=== PATIENT | male | born 1960 | race Caucasian/White ===

== ENCOUNTER 2017-11-07 07:26 | Emergency (ER) | payer MEDICAID ==
[~2017-11-07] VITALS: Ht 190.5 cm; Wt 72.2 kg
[2017-11-07 07:28] VITALS: BP 130/87
[2017-11-07] MEDS ORDERED: HYDROcodone/APAP 5/325 TABLET ONE (08:11)
[2017-11-07] MEDS ORDERED: HYDROcodone/APAP 5/325 TABLET PO PRN (08:30)
== END 2017-11-07 09:57 | disposition home or self-care (01) ==
LOC: ED 09:51
DX: G89.29 Other chronic pain (principal); M25.531 Pain in right wrist; F17.200 Nicotine dependence, unspecified, uncomplicated
CPT/HCPCS: 29260; 99284

== ENCOUNTER 2019-08-31 11:09 | Emergency (ER) | payer MEDICAID ==
[~2019-08-31] VITALS: Ht 190.5 cm; Wt 75.1 kg
[2019-08-31 11:25] VITALS: BP 133/81
[2019-08-31] MEDS ORDERED: KETOROLAC 30 MG/1 ML IM ONE (12:00)
[2019-08-31 12:39] LABS: BASOPHILS # (AUTO) 0.11 x10^3/uL (0-0.1); BASOPHILS % (AUTO) 1 % (0-1); EOSINOPHILS # (AUTO) 0.28 x10^3/uL (0-0.4); EOSINOPHILS % (AUTO) 2 % (1-7); HCT (SEDRATE) 43.7 % (39.2-51.8); LYMPHOCYTES # (AUTO) 2.92 x10^3/uL (1-3.4); LYMPHOCYTES % (AUTO) 22 % (22-44); MD NO; MEAN CORPUSCULAR HEMOGLOBIN 29.8 pg (27.5-34.5); MEAN CORPUSCULAR HGB CONC 32.8 g/dL (33.2-36.2); MEAN CORPUSCULAR VOLUME 90.9 fL (81-97); MEAN PLATELET VOLUME 7.2 fL (7.4-10.4); MONOCYTES # (AUTO) 0.82 x10^3/uL (0.2-0.8); MONOCYTES % (AUTO) 6 % (2-9); NEUTROPHILS # (AUTO) 9.16 x10^3/uL (1.8-6.8); NEUTROPHILS % (AUTO) 69 % (42-75); PLATELET COUNT 339 x10^3/uL (130-400); RED BLOOD COUNT 4.85 x10^6/uL (4.38-5.82); RED CELL DISTRIBUTION WIDTH 13.8 % (9.4-14.8)
[2019-08-31 12:46] LABS: ALBUMIN 3.3 g/dL (3.4-5.0); ANION GAP 3 mmol/L (5-15); CALCIUM 9.7 mg/dL (8.5-10.1); CHLORIDE 108 mmol/L (98-107)
[2019-08-31] MEDS ORDERED: KETOROLAC 30 MG/1 ML ONE (12:47)
[2019-08-31 12:56] LABS: CREATININE 0.85 mg/dL (0.7-1.3)
[2019-08-31] MEDS ORDERED: CEPHALEXIN 500 MG CAPSULE PO ONE (13:30)
[2019-08-31] MEDS ORDERED: SULFAMETH./TRIMETHOPRIM DS 800MG/160MG TABLET PO ONE (13:30)
[2019-08-31] MEDS ORDERED: CEPHALEXIN 500 MG CAPSULE ONE (13:41)
[2019-08-31] MEDS ORDERED: SULFAMETH./TRIMETHOPRIM DS 800MG/160MG TABLET ONE (13:41)
== END 2019-08-31 14:54 | disposition home or self-care (01) ==
LOC: ED 13:24
DX: L03.113 Cellulitis of right upper limb (principal); M19.90 Unspecified osteoarthritis, unspecified site; Z90.49 Acquired absence of other specified parts of digestive tract
CPT/HCPCS: 36415; 73080; 80048; 82040; 83605; 85025; 85651; 86140; 96372; 99284; J1885

== ENCOUNTER 2019-11-02 08:28 | Outpatient (CLI) | payer MEDICAID | END 2019-11-02 23:59 | disposition home or self-care (01) | LOC: WOUND 08:28 | PROVIDERS: ATTEND Internal Medicine | DX: S51.001A Unspecified open wound of right elbow, initial encounter (principal); I10 Essential (primary) hypertension; G89.4 Chronic pain syndrome; E78.5 Hyperlipidemia, unspecified; M19.90 Unspecified osteoarthritis, unspecified site; F19.10 Other psychoactive substance abuse, uncomplicated; F17.290 Nicotine dependence, other tobacco product, uncomplicated; F41.9 Anxiety disorder, unspecified; F32.9 Major depressive disorder, single episode, unspecified; Z90.49 Acquired absence of other specified parts of digestive tract; Y08.89XA Assault by other specified means, initial encounter; Y93.89 Activity, other specified; Y92.89 Other specified places as the place of occurrence of the external cause; Y99.8 Other external cause status | CPT/HCPCS: 97597; 99214 ==

== ENCOUNTER → 2019-11-09 | Outpatient (CLI) | payer MEDICAID | END | disposition home or self-care (01) | LOC: WOUND 12:31 | PROVIDERS: ATTEND Internal Medicine | DX: S51.001D Unspecified open wound of right elbow, subsequent encounter (principal); I10 Essential (primary) hypertension; F41.9 Anxiety disorder, unspecified; F32.9 Major depressive disorder, single episode, unspecified; E78.5 Hyperlipidemia, unspecified; G89.4 Chronic pain syndrome; F19.10 Other psychoactive substance abuse, uncomplicated; F15.10 Other stimulant abuse, uncomplicated; F14.10 Cocaine abuse, uncomplicated; M19.90 Unspecified osteoarthritis, unspecified site; Z90.49 Acquired absence of other specified parts of digestive tract; F17.200 Nicotine dependence, unspecified, uncomplicated; X58.XXXD Exposure to other specified factors, subsequent encounter | CPT/HCPCS: 97597 ==

== ENCOUNTER → 2019-11-16 | Outpatient (CLI) | payer MEDICAID | END | disposition home or self-care (01) | LOC: WOUND 12:35 | PROVIDERS: ATTEND Internal Medicine | DX: S51.001D Unspecified open wound of right elbow, subsequent encounter (principal); I10 Essential (primary) hypertension; F41.9 Anxiety disorder, unspecified; F32.9 Major depressive disorder, single episode, unspecified; E78.5 Hyperlipidemia, unspecified; G89.4 Chronic pain syndrome; F19.10 Other psychoactive substance abuse, uncomplicated; F15.10 Other stimulant abuse, uncomplicated; F14.10 Cocaine abuse, uncomplicated; M19.90 Unspecified osteoarthritis, unspecified site; Z90.49 Acquired absence of other specified parts of digestive tract; F17.200 Nicotine dependence, unspecified, uncomplicated; X58.XXXD Exposure to other specified factors, subsequent encounter | CPT/HCPCS: 97597 ==

== ENCOUNTER → 2019-12-07 | Outpatient (CLI) | payer MEDICAID ==
[~2019-12-07] MED LIST: ATOR10TA9 PO; CYCL-259 PO; GABA-827 PO; GADOTERATE 10 MMOL/20 ML SYR ONE; LISI5TAB7 PO; MELO15TA24 PO; MORP-29 PO; OXYC10TA6 PO
== END | disposition home or self-care (01) ==
LOC: RAD 08:57
PROVIDERS: ATTEND Internal Medicine
DX: S51.001D Unspecified open wound of right elbow, subsequent encounter (principal); R60.9 Edema, unspecified; X58.XXXD Exposure to other specified factors, subsequent encounter
CPT/HCPCS: 73223; A9575

== ENCOUNTER → 2019-12-07 | Outpatient (CLI) | payer MEDICAID ==
[~2019-12-07] MED LIST changes: -GADOTERATE 10 MMOL/20 ML SYR ONE
== END | disposition home or self-care (01) ==
LOC: WOUND 07:32
PROVIDERS: ATTEND Internal Medicine
DX: S51.001D Unspecified open wound of right elbow, subsequent encounter (principal); I10 Essential (primary) hypertension; F41.9 Anxiety disorder, unspecified; F32.9 Major depressive disorder, single episode, unspecified; E78.5 Hyperlipidemia, unspecified; G89.4 Chronic pain syndrome; F19.10 Other psychoactive substance abuse, uncomplicated; F15.10 Other stimulant abuse, uncomplicated; F14.10 Cocaine abuse, uncomplicated; M19.90 Unspecified osteoarthritis, unspecified site; F17.200 Nicotine dependence, unspecified, uncomplicated; Z90.49 Acquired absence of other specified parts of digestive tract; X58.XXXD Exposure to other specified factors, subsequent encounter
CPT/HCPCS: 97597

== ENCOUNTER 2019-12-08 13:33 | Inpatient (IN) | payer MEDICAID ==
[~2019-12-08] VITALS: Ht 190.5 cm; Wt 67.3 kg
--- NOTE | 2019-12-08 14:50 | NUR ---
PT TOLD TO COME HERE BY PCP FOR SUSPICION OF "BONE INFECTION" PT TO BP, CONT PULSE OX LABS BEING DRAWN
[2019-12-08 15:11] LABS: ALBUMIN 4.4 g/dL (3.4-5.0); ANION GAP 7 mmol/L (5-15); CALCIUM 10.1 mg/dL (8.5-10.1); CHLORIDE 103 mmol/L (98-107)
[2019-12-08 15:17] LABS: BASOPHILS % (AUTO) 1 % (0-1); EOSINOPHILS % (AUTO) 2 % (1-7); LYMPHOCYTES % (AUTO) 20 % (22-44); MEAN CORPUSCULAR HEMOGLOBIN 29.5 pg (27.5-34.5); MEAN CORPUSCULAR HGB CONC 32.8 g/dL (33.2-36.2); MEAN PLATELET VOLUME 7.6 fL (7.4-10.4); MONOCYTES % (AUTO) 8 % (2-9); NEUTROPHILS % (AUTO) 70 % (42-75); PLATELET COUNT 376 x10^3/uL (130-400); RED BLOOD COUNT 5.77 x10^6/uL (4.38-5.82); RED CELL DISTRIBUTION WIDTH 14.4 % (9.4-14.8)
[2019-12-08 15:27] LABS: MD NO
[2019-12-08] MEDS ORDERED: SODIUM CHLORIDE 0.9% 1,000 ML IV ONE (15:30)
[2019-12-08] MEDS ORDERED: SODIUM CHLORIDE FLUSH 10ML SYR IVF ONE (15:30)
[2019-12-08] MEDS ORDERED: VANCOMYCIN PER PHARMACY MC PRN ×2 (16:00→19:00)
[2019-12-08] MEDS ORDERED: PIPERACILLIN/TAZO/PMX 3.375GM 50 ML IV ONE (16:00)
[2019-12-08] MEDS ORDERED: VANCOMYCIN 1,500 MG in SODIUM CHLORIDE 0.9% 250 ML IV ONE (16:00)
--- NOTE | 2019-12-08 16:14 | NUR ---
ABX BEGAN POST BC DRAWN, VSS, NO NEEDS AT THIS TIME
[2019-12-08] MEDS ORDERED: PIPERACILLIN/TAZO/PMX 3.375GM 50 ML ONE (16:17)
[2019-12-08 16:37] LABS: HCT (SEDRATE) 51.9 % (39.2-51.8)
--- NOTE | 2019-12-08 17:30 | NUR ---
REPORT GIVEN TO RECIEVING RN, AWAITING TRANSPORT
[2019-12-08] MEDS ORDERED: MELO15TA24 PO (17:46)
[2019-12-08] MEDS ORDERED: CYCL-259 PO (17:46)
[2019-12-08] MEDS ORDERED: OXYC10TA6 PO (17:46)
[2019-12-08] MEDS ORDERED: LISI5TAB7 PO (17:46)
[2019-12-08] MEDS ORDERED: ATOR10TA9 PO (17:46)
[2019-12-08] MEDS ORDERED: MORP-29 PO (17:46)
[2019-12-08] MEDS ORDERED: GABA-827 PO (17:46)
[2019-12-08 18:44] VITALS: BP 128/80
[2019-12-08] MEDS: PIPERACILLIN/TAZO/PMX 3.375GM 50 ML IV SCH (19:00)
[2019-12-08] MEDS ORDERED: morphine SULFATE 10 MG/ML, 1ML IVPush PRN (19:30)
[2019-12-08] MEDS ORDERED: POLYETHYLENE GLYCOL 17 GM PACKET PO PRN (19:30)
[2019-12-08] MEDS ORDERED: PHARMACOKINETIC CONSULTATION MC ONE (19:30)
[2019-12-08] MEDS ORDERED: DOCUSATE 100 MG CAPSULE PO PRN (19:30)
[2019-12-08] MEDS ORDERED: HYDROcodone/APAP 5/325 TABLET PO PRN (19:30)
[2019-12-08] MEDS ORDERED: BISACODYL 10 MG SUPP PR PRN (19:30)
[2019-12-08] MEDS ORDERED: PHARMACOKINETIC MONITORING MC PRN (19:30)
[2019-12-08] MEDS ORDERED: ACETAMINOPHEN 325 MG TABLET PO PRN (19:30)
[2019-12-08 20:05] LABS: INTERNATIONAL NORMALIZED RATIO 0.97 (0.93-1.1)
[2019-12-08] MEDS: GABAPENTIN 400 MG CAPSULE PO SCH (21:00)
[2019-12-08] MEDS: MELOXICAM 15 MG TABLET PO SCH (21:00)
[2019-12-08] MEDS: ATORVASTATIN 10 MG TABLET PO SCH (21:35)
[2019-12-09 00:28] VITALS: BP 121/85
[2019-12-09] MEDS: PIPERACILLIN/TAZO/PMX 3.375GM 50 ML IV SCH ×3 (04:09→20:46)
[2019-12-09] MEDS: OXYcodone IR 5MG TABLET PO SCH ×3 (04:18→21:04)
[2019-12-09 05:20] LABS: BASOPHILS % (AUTO) 1 % (0-1); EOSINOPHILS % (AUTO) 4 % (1-7); LYMPHOCYTES % (AUTO) 31 % (22-44); MEAN CORPUSCULAR HEMOGLOBIN 29.5 pg (27.5-34.5); MEAN CORPUSCULAR HGB CONC 33.2 g/dL (33.2-36.2); MEAN PLATELET VOLUME 7.4 fL (7.4-10.4); MONOCYTES % (AUTO) 10 % (2-9); NEUTROPHILS % (AUTO) 55 % (42-75); PLATELET COUNT 313 x10^3/uL (130-400); RED BLOOD COUNT 5.22 x10^6/uL (4.38-5.82); RED CELL DISTRIBUTION WIDTH 14.1 % (9.4-14.8)
[2019-12-09 05:28] LABS: ALBUMIN 3.5 g/dL (3.4-5.0); ANION GAP 4 mmol/L (5-15); CALCIUM 9.9 mg/dL (8.5-10.1); CHLORIDE 110 mmol/L (98-107)
[2019-12-09 05:34] LABS: MD NO
[2019-12-09 05:39] LABS: ALANINE AMINOTRANSFERASE 26 U/L (12-78); ALKALINE PHOSPHATASE 86 U/L (45-117); BILIRUBIN,TOTAL 0.7 mg/dL (0.2-1.0); TOTAL PROTEIN 7.6 g/dL (6.4-8.2)
[2019-12-09] MEDS: VANCOMYCIN 1,300 MG in SODIUM CHLORIDE 0.9% 250 ML IV SCH ×2 (06:31→17:29)
[2019-12-09 07:35] VITALS: BP 119/74
[2019-12-09] MEDS ORDERED: GABAPENTIN 400 MG CAPSULE PO SCH (09:00)
[2019-12-09] MEDS ORDERED: MELOXICAM 15 MG TABLET PO SCH (09:00)
[2019-12-09] MEDS: LISINOPRIL 5 MG TABLET PO SCH (09:03)
[2019-12-09] MEDS ORDERED: BACITRACIN 50,000 UNIT ONE (12:49)
[2019-12-09 13:06] VITALS: BP 125/85
[2019-12-09] MEDS ORDERED: CHLORHEXIDINE 15 ML UDC MM ONE (14:30)
[2019-12-09] MEDS ORDERED: CHLORHEXIDINE 15 ML UDC ONE (14:31)
[2019-12-09] MEDS ORDERED: FENTANYL PF 250 MCG/5ML ONE (15:35)
[2019-12-09] MEDS ORDERED: DEXAMETHASONE 4 MG/ML, 1ML ONE (16:01)
[2019-12-09] MEDS ORDERED: ONDANSETRON 2MG/ML, 2ML ONE (16:01)
[2019-12-09] MEDS ORDERED: CEFAZOLIN 1,000 MG ONE (16:01)
[2019-12-09] MEDS ORDERED: PROPOFOL 10 MG/ML, 20ML ONE (16:01)
[2019-12-09] MEDS: FENTANYL PF 100 MCG/2ML IV PRN ×2 (16:25→16:31)
[2019-12-09] MEDS ORDERED: OXYcodone 5 MG/5 ML ORAL.SOL UDC ONE (16:26)
[2019-12-09] MEDS ORDERED: FENTANYL PF 100 MCG/2ML ONE (16:28)
[2019-12-09] MEDS ORDERED: OXYcodone 5 MG/5 ML ORAL.SOL UDC PO PRN (16:30)
[2019-12-09] MEDS ORDERED: hydrALAzine 20 MG/ML, 1ML IV PRN (16:30)
[2019-12-09] MEDS ORDERED: ONDANSETRON 2MG/ML, 2ML IVPush PRN (16:30)
[2019-12-09] MEDS ORDERED: PROMETHAZINE 25 MG/ML, 1ML IVPush PRN (16:30)
[2019-12-09] MEDS ORDERED: HALOPERIDOL 5 MG/ML IV PRN (16:30)
[2019-12-09] MEDS ORDERED: MEPERIDINE/PF 25MG/0.5ML IVPush PRN (16:30)
[2019-12-09] MEDS ORDERED: LABETALOL 5MG/ML, 20ML IV PRN (16:30)
[2019-12-09] MEDS ORDERED: DIPHENHYDRAMINE 50 MG/ML, 1ML IVPush PRN (16:30)
[2019-12-09] MEDS ORDERED: HYDROmorphone 1 MG/ML, 1ML INJ IVPush PRN (16:30)
[2019-12-09 17:00] VITALS: BP 117/78
[2019-12-09 20:29] VITALS: BP 130/83
[2019-12-09] MEDS: ATORVASTATIN 10 MG TABLET PO SCH (22:22)
[2019-12-09] MEDS: MELOXICAM 15 MG TABLET PO SCH (22:22)
[2019-12-09] MEDS: GABAPENTIN 400 MG CAPSULE PO SCH (22:22)
[2019-12-09] MEDS: CYCLOBENZAPRINE 10 MG TABLET PO PRN (22:28)
[2019-12-10 00:41] VITALS: BP 101/67
[2019-12-10] MEDS: PIPERACILLIN/TAZO/PMX 3.375GM 50 ML IV SCH ×3 (03:21→18:44)
[2019-12-10] MEDS: OXYcodone IR 5MG TABLET PO SCH ×5 (03:26→20:47)
[2019-12-10 04:32] VITALS: BP 119/76
[2019-12-10] MEDS: VANCOMYCIN 1,300 MG in SODIUM CHLORIDE 0.9% 250 ML IV SCH (05:04)
[2019-12-10 05:55] LABS: BASOPHILS % (AUTO) 1 % (0-1); EOSINOPHILS % (AUTO) 0 % (1-7); LYMPHOCYTES % (AUTO) 16 % (22-44); MEAN CORPUSCULAR HEMOGLOBIN 29.4 pg (27.5-34.5); MEAN CORPUSCULAR HGB CONC 32.8 g/dL (33.2-36.2); MEAN PLATELET VOLUME 7.5 fL (7.4-10.4); MONOCYTES % (AUTO) 8 % (2-9); NEUTROPHILS % (AUTO) 76 % (42-75); PLATELET COUNT 298 x10^3/uL (130-400); RED BLOOD COUNT 5.14 x10^6/uL (4.38-5.82); RED CELL DISTRIBUTION WIDTH 13.9 % (9.4-14.8)
[2019-12-10 05:57] LABS: ANION GAP 6 mmol/L (5-15); CALCIUM 9.6 mg/dL (8.5-10.1); CHLORIDE 109 mmol/L (98-107)
[2019-12-10 06:00] LABS: CREATININE 0.93 mg/dL (0.7-1.3); VANCOMYCIN,TROUGH 12.4 mcg/mL (5.0-10.0)
[2019-12-10 06:11] LABS: MD NO
[2019-12-10 07:56] VITALS: BP 122/72
[2019-12-10] MEDS: LISINOPRIL 5 MG TABLET PO SCH (08:04)
[2019-12-10] MEDS: VANCOMYCIN 1,500 MG in SODIUM CHLORIDE 0.9% 250 ML IV SCH (16:57)
[2019-12-10 20:38] VITALS: BP 109/72
[2019-12-10] MEDS: CYCLOBENZAPRINE 10 MG TABLET PO PRN (22:13)
[2019-12-10] MEDS: ATORVASTATIN 10 MG TABLET PO SCH (22:13)
[2019-12-10] MEDS: GABAPENTIN 400 MG CAPSULE PO SCH (22:13)
[2019-12-10] MEDS: MELOXICAM 15 MG TABLET PO SCH (22:13)
[2019-12-11] MEDS: PIPERACILLIN/TAZO/PMX 3.375GM 50 ML IV SCH ×3 (03:06→18:34)
[2019-12-11 03:08] VITALS: BP 111/67
[2019-12-11] MEDS: VANCOMYCIN 1,500 MG in SODIUM CHLORIDE 0.9% 250 ML IV SCH ×2 (05:51→16:42)
[2019-12-11] MEDS: OXYcodone IR 5MG TABLET PO SCH ×3 (05:51→16:42)
[2019-12-11 05:56] LABS: BASOPHILS % (AUTO) 1 % (0-1); EOSINOPHILS % (AUTO) 3 % (1-7); LYMPHOCYTES % (AUTO) 29 % (22-44); MEAN CORPUSCULAR HEMOGLOBIN 29.3 pg (27.5-34.5); MEAN CORPUSCULAR HGB CONC 32.9 g/dL (33.2-36.2); MEAN PLATELET VOLUME 7.6 fL (7.4-10.4); MONOCYTES % (AUTO) 7 % (2-9); NEUTROPHILS % (AUTO) 59 % (42-75); PLATELET COUNT 283 x10^3/uL (130-400); RED BLOOD COUNT 5.07 x10^6/uL (4.38-5.82); RED CELL DISTRIBUTION WIDTH 14.1 % (9.4-14.8)
[2019-12-11 06:00] LABS: CHLORIDE 112 mmol/L (98-107)
[2019-12-11 06:04] LABS: ANION GAP 5 mmol/L (5-15); CALCIUM 9.6 mg/dL (8.5-10.1); CREATININE 0.96 mg/dL (0.7-1.3)
[2019-12-11 06:16] LABS: MD NO
[2019-12-11 07:43] VITALS: BP 112/75
[2019-12-11] MEDS: LISINOPRIL 5 MG TABLET PO SCH (08:03)
[2019-12-11 13:42] VITALS: BP 113/74
[2019-12-11 20:17] VITALS: BP 105/69
[2019-12-11] MEDS: MELOXICAM 15 MG TABLET PO SCH (21:03)
[2019-12-11] MEDS: ATORVASTATIN 10 MG TABLET PO SCH (21:03)
[2019-12-11] MEDS: GABAPENTIN 400 MG CAPSULE PO SCH (21:04)
[2019-12-12] MEDS: PIPERACILLIN/TAZO/PMX 3.375GM 50 ML IV SCH ×2 (03:10→10:42)
[2019-12-12 04:37] LABS: BASOPHILS % (AUTO) 0 % (0-1); EOSINOPHILS % (AUTO) 4 % (1-7); LYMPHOCYTES % (AUTO) 24 % (22-44); MEAN CORPUSCULAR HEMOGLOBIN 29.5 pg (27.5-34.5); MEAN PLATELET VOLUME 7.6 fL (7.4-10.4); MONOCYTES % (AUTO) 7 % (2-9); NEUTROPHILS % (AUTO) 65 % (42-75); PLATELET COUNT 288 x10^3/uL (130-400); RED BLOOD COUNT 5.16 x10^6/uL (4.38-5.82); RED CELL DISTRIBUTION WIDTH 14.1 % (9.4-14.8)
[2019-12-12 04:46] LABS: MD NO
[2019-12-12] MEDS: VANCOMYCIN 1,500 MG in SODIUM CHLORIDE 0.9% 250 ML IV SCH (05:30)
[2019-12-12] MEDS: OXYcodone IR 5MG TABLET PO SCH ×2 (05:31→10:35)
[2019-12-12 07:26] VITALS: BP 115/75
[2019-12-12] MEDS: LISINOPRIL 5 MG TABLET PO SCH (09:00)
[2019-12-12] MEDS ORDERED: ERTAPENEM 1 GM in SODIUM CHLORIDE 0.9% 50 ML IV SCH (11:30)
[2019-12-12 13:49] VITALS: BP 124/80
[2019-12-12] MEDS ORDERED: LACT1CAP35 PO (15:56)
== END 2019-12-12 17:10 | disposition home or self-care (01) | DRG 854 ==
LOC: ED 14:20 → EDIP 16:00 → 4NE 18:36
PROVIDERS: ADMIT Internal Medicine; ATTEND Internal Medicine
PROC: 0MB30ZZ Excision of Right Elbow Bursa and Ligament, Open Approach (ICD-10-PCS; principal; 2019-12-09 17:30)
PROC: 02HV33Z Insertion of Infusion Device into Superior Vena Cava, Percutaneous Approach (ICD-10-PCS; 2019-12-12)
PROC: B548ZZA Ultrasonography of Superior Vena Cava, Guidance (ICD-10-PCS; 2019-12-12)
DX: A41.9 Sepsis, unspecified organism (principal); E87.1 Hypo-osmolality and hyponatremia; L03.113 Cellulitis of right upper limb; M86.10 Other acute osteomyelitis, unspecified site; F12.90 Cannabis use, unspecified, uncomplicated; F17.200 Nicotine dependence, unspecified, uncomplicated; I10 Essential (primary) hypertension; Z20.828 Contact with and (suspected) exposure to other viral communicable diseases; M71.121 Other infective bursitis, right elbow; F32.9 Major depressive disorder, single episode, unspecified; F41.9 Anxiety disorder, unspecified; G89.29 Other chronic pain; Z90.49 Acquired absence of other specified parts of digestive tract
CPT/HCPCS: 36415; 36573; 80048; 80053; 80202; 82040; 83605; 83735; 84100; 84145; 84443; 85025; 85610; 85651; 86140; 87040; 87070; 87075; 87077; 87176; 87186; 87205; 87635; 99285; G0378; J0690; J1100; J1335; J2405; J2543; J2704; J3010; J3370; C1751; J7030; J7050